=== PATIENT | female | born 1940 | race Caucasian/White ===

== ENCOUNTER 2021-02-28 17:00 | Observation (INO) | payer BC, SELFPAY ==
[2021-02-28] VITALS (15 sets, daily range): BP systolic 158–189; BP diastolic 65–85; PULSE 62–71; RESP 15–24; TEMP 36.2; O2SAT 95–99; BMI 21.8
--- NOTE | 2021-02-28 17:00 | DI.CT.S_ITS ---
PROCEDURE: CT ANGIO HEAD AND NECK INDICATIONS: weakness, left arm, syncope TECHNIQUE: Noncontrast images were performed earlier in the day and not repeated. After the administration of intravenous contrast, 1 mm thick sections acquired from the aortic arch through the [place] of Gupta. Post-contrast 4.5 mm thick sections then re-acquired from the foramen magnum to the vertex. 3-dimensional qogchqu-rwdfxnuws-hkupmfndxc (MIP) and/or volume rendering reformats were acquired of the central intracranial vasculature and neck separately. COMPARISON: [facility], CT, CT STROKE, 02/28/2021, 17:04. FINDINGS: Image quality: Excellent. BRAIN: CSF spaces: Ventricles are normal in size and shape. Basal cisterns are patent. No extra-axial fluid collections. Brain: No midline shift. No intracranial bleeds or masses. Zaavla-white matter interface appears intact. Skull and face: Calvarium and facial bones appear intact, without suspicious lesions. Orbits appear normal. Sinuses: Sinuses and mastoids are clear. HEAD CT ANGIOGRAPHY: Anterior circulation: Intracranial internal carotid arteries are normal in size and flow. There is a diminutive left A1 segment, with a corresponding robust right A1 segment. This is considered to be a normal developmental variant of the [place] of [place], of typically no clinical consequence. The flow within the paired anterior cerebral arteries is otherwise normal and symmetric. The flow within the middle cerebral arteries is normal and symmetric. The anterior communicating artery is seen. No aneurysms are seen. Posterior circulation: Note is made of bilateral type origins of the posterior cerebral arteries, with an associated diminutive basilar artery. The flow within the posterior cerebral arteries is normal and symmetric. The distal vertebral arteries are overall small in size, yet otherwise unremarkable. No aneurysms are seen. NECK CT ANGIOGRAPHY: Carotid system: The great vessels demonstrate a conventional anatomy as they arise from the aortic arch. The origins of the common carotid arteries appear patent. The common carotid arteries demonstrate normal caliber and courses. The bifurcation regions are both widely patent. The internal carotid arteries demonstrate normal calibers and courses. Posterior circulation: The origins of the vertebral arteries both appear widely patent. The more superior extracranial portions of both vertebral arteries also demonstrate normal courses and calibers. They join to form a normal appearing basilar artery. Soft tissues: Visualized neck soft tissues demonstrate no suspicious abnormalities. Bones: No suspicious bony lesions. Visualized cervical spine appears normally aligned. At least moderate cervical spine degenerative changes can be seen, with at least moderate disc space narrowing seen at C4-C5, C5-C6, and C6-C7.. IMPRESSION: No significant intracranial arterial abnormality is seen. Within the arteries of the neck, no hemodynamically significant stenosis can be seen. Incidental note is made of: Cervical spine degenerative changes Ooacri-pa-Ebgirb developmental anomalies Any quantitative measurements of stenosis were performed using NASCET criteria. Dictated by: Charles Braga M.D. on 02/28/2021 at 16:24 Approved by: Charles Braga M.D. on 02/28/2021 at 16:27
--- NOTE | 2021-02-28 17:00 | DI.CT.S_ITS ---
PROCEDURE: CT STROKE INDICATIONS: syncope, left arm weak, improving TECHNIQUE: Noncontrast 4.5 mm thick angled axial sections acquired from the foramen magnum to the vertex, with coronal reformats. For radiation dose reduction, the following was used: automated exposure control, adjustment of mA and/or kV according to patient size. COMPARISON: None. FINDINGS: Image quality: Excellent. CSF spaces: Basal cisterns are patent. No extra-axial fluid collections. There is moderate cerebral volume loss, with resultant ventricular and sulcal prominence as well as prominence of the anterior extra-axial spaces. Brain: No intracranial hemorrhage, mass, or mass effect. There are subcortical, periventricular and deep white matter hypodensities consistent with mild chronic small vessel ischemic changes. The jackson-white matter junction appears preserved. There is intracranial internal carotid artery atherosclerosis. Skull and face: Calvarium and visualized facial bones appear intact, without suspicious lesions. Sinuses: Visualized sinuses and mastoids are clear. IMPRESSION: 1. No acute intracranial abnormality. No imaging contraindications to tPA identified. 2. Moderate cerebral volume loss and mild chronic white matter small vessel ischemic changes. Findings discussed with Dr. Ferro on 02/28/2021 at 5:21 p.m.. This study fulfills neurological imaging criteria for inclusion or exclusion of acute stroke therapies based on available published neurological guidelines. Dictated by: August Baxter M.D. on 02/28/2021 at 17:20 Approved by: August Baxter M.D. on 02/28/2021 at 17:24 PATIENT NAME: GAYATRI MARTÍNEZ : 1940 EXAM DATE: 02/28/2021 17:04 ORD. : MARGI FERRO DO CC: MODALITY: CT PATIENT TYPE: Pre CONTRAST MEDIA: STATION ID: [id number] FLUORO TIME: Diagnostic Imaging [address] [place] [address] PHONE: [phone] PATIENT NAME: GAYATRI MARTÍNEZ : 1940 EXAM DATE: 02/28/2021 17:04 ORD. : MARGI FERRO DO CC: MODALITY: CT PATIENT TYPE: Pre CONTRAST MEDIA: STATION ID: [id number] FLUORO TIME:
--- NOTE | 2021-02-28 17:09 | ED_ITS ---
HPI - Psych General Chief Complaint: Neuro Symptoms/Deficit Stated Complaint: stroke Time Seen by Provider: 02/28/21 17:02 Source: patient Mode of arrival: Ambulatory Limitations: no limitations History of Present Illness HPI Narrative: This is an 81-year-old female who comes to the emergency department with complaint of stroke-like symptoms. Patient is currently living in an RV while traveling with friends for the last several weeks. She had a witnessed episode where she began having drooling and difficulty with speech, patient passed out or had a loss of consciousness and shortly weekend. At that point she had inability to use her left upper extremity which was also appreciated by EMS. Upon transfer here via EMS her symptoms resolved completely and she feels back to her normal self. Patient notes she did feel dizzy prior to the episode generally unwell she denies any headache at this time she has no difficulty with speech, no weakness, no numbness or tingling. She denies any chest pain or shortness of breath. She denies any nausea or vomiting. No recent major GI issues. She denies swelling in her extremities. She takes atorvastatin, levothyroxine, metoprolol and recently had her medications adjusted with valsartan hydrochlorothiazide. Patient states she has known hypertension and they have had difficulty controlling it recently. She is not on any anticoagulants including aspirin. She has not had prior cardiac issues, stents or strokes or TIAs. She states she does not tolerate narcotics well. No tobacco, occasional alcohol, no illicit. She states she had a small glass of wi ne earlier today. Related Data Home Medications Medication Instructions Recorded Confirmed atorvastatin 20 mg tablet 20 mg PO QPM 02/28/21 02/28/21 levothyroxine 88 mcg tablet 88 mcg PO DAILY 02/28/21 02/28/21 metoprolol succinate 50 mg 50 mg PO DAILY 02/28/21 02/28/21 tablet,extended release 24 hr valsartan 160 1 tab PO DAILY 02/28/21 02/28/21 mg-hydrochlorothiazide 12.5 mg tablet Allergies Allergy/AdvReac Type Severity Reaction Status Date / Time narcotic AdvReac Vomiting Uncoded 02/28/21 17:49 Review of Systems Review of Systems ROS Unobtainable: All systems reviewed & are unremarkable except as noted in HPI and below Patient History Social History Smoking Status: Never smoker Exam Narrative Exam Narrative: GEN: well nourished, well appearing female, alert and oriented x 3, patient appears to be in mild distress. HEENT: Atraumatic, pupils are equal round reactive to light, extraocular movements are intact, nares are clear, TMs are clear with no fluid, there is no conjunctival pallor. Throat is clear without any exudates, erythema, tonsillar enlargement or uvular deviation, no facial droop. HEART: Regular rate and rhythm without murmur, clicks, rubs. Pulses are equal in upper and lower extremities LUNGS:Lungs clear to auscultation, no wheezes, rales, crackles, chest moves symmetrically ABD:bowel sounds normal, soft, non-tender, no guarding, rebound, rigidity, no masses noted, no hepatosplenomegaly :No CVA tenderness MSCL: Non-tender, no muscle atrophy, muscles strength 5/5 upper and lower e xtremities, full range of motion NEURO:CN 2-12 intact, sensation normal, reflexes 2/4 upper and lower extremities. finger nose finger test normal, heel reynolds test normal, romberg normal SKIN: No rash, erythema or other skin changes noted. Initial Vital Signs Initial Vital Signs: Vital Signs Pulse Rate 70 02/28/21 17:00 Respiratory Rate 20 02/28/21 17:00 Blood Pressure 179/78 H 02/28/21 17:00 Pulse Oximetry 97 02/28/21 17:00 Scores NIH Stroke Scale Level of Conciousness: Alert, keenly responsive Ask month/age: Answers both questions correctly. Open/close eyes, close hand: Performs both tasks correctly Best gaze horizontal: Normal Visual londono: No visual loss Facial palsy: Normal symetrical movement Left arm drift: No drift for full 10 sec Right arm drift: No drift for full 10 sec Left leg drift: No drift for full 5 sec Right leg drift: No drift for full 5 sec Limb ataxia: Absent Sensory on face/arms/legs: Normal, no sensory loss Best language: No aphasia, normal Dysarthria: Normal Extinction or inattention: No abnormality Total NIH Stroke scale score: 0 Course Orders Ordered: ED Orders 02/28/21 17:[address] angio head and neck Stat Urine Drug Screen, Rapid Stat EKG-12 Lead Stat 02/28/21 17:18 Basic Metabolic Panel Stat Complete Blood Count AUTO DIFF Stat Partial Thromboplastin Time Stat Prothrombin Time INR Stat Troponin & CK Cardiac Panel Stat 02/28/21 17:26 COVID19 - ADMIT (ASSOCIATE CIVIL ENGINEER swab/PCR) Stat 02/28/21 17:29 COVID19 - ADMIT (ASSOCIATE CIVIL ENGINEER swab/PCR) Stat Sodium Chloride (Normal Saline 0.9%) 1,000 mls @ 150 mls/hr IV CONT MARLA Last Admin: 02/28/21 17:47 Dose: 150 mls/hr Documented by: NETTA Discontinued Medications Aspirin (Aspirin 81 Mg Chew Tab) 324 mg PO NOW ONE Stop: 02/28/21 17:31 Last Admin: 02/28/21 17:47 Dose: 324 mg Documented by: NETTA Consultations Consultation #1: Dr. Ashley, accepts for observation. Vital Signs Vital signs: Vital Signs - 8 hr 02/28/21 17:00 02/28/21 17:15 02/28/21 17:17 Pulse Rate 70 69 67 Respiratory Rate 20 15 16 Blood Pressure 179/78 H 179/78 H Pulse Oximetry 97 98 02/28/21 17:30 02/28/21 17:46 02/28/21 18:00 Pulse Rate 71 68 63 Respiratory Rate 24 18 20 Blood Pressure 188/74 H 179/74 H Pulse Oximetry 97 97 02/28/21 18:30 02/28/21 19:00 Pulse Rate 64 64 Respiratory Rate 20 20 Blood Pressure Pulse Oximetry 98 97 MDM - Psych Lab Data Result diagrams: 02/28/21 17:18 02/28/21 17:18 Labs: Lab Results 02/28/21 02/28/21 02/28/21 Range/Units 17:18 17:18 17:18 WBC 11.4 H (4.5-11.0) X10^3/uL RBC 4.08 (4.0-5.2) X10^6/uL Hgb 13.2 (12.0-16.0) g/dL Hct 38.8 (36-46) % MCV 95.2 (80-100) fL MCH 32.3 (26-34) PG MCHC 34.0 (30-36) % RDW 12.5 (11.6-14.8) % Plt Count 310 (150-400) X10^3/uL Neut % (Auto) 56.0 (50-75) % Lymph % (Auto) 31.9 (25-40) % [place] % (Auto) 9.7 (3-14) % Eos % (Auto) 1.3 L (2-4) % Baso % (Auto) 1.1 (0-2) % Neut # (Auto) 6400 (7339-1556) /uL Lymph # (Auto) 3600 (5133-8703) /uL [place] # (Auto) 1100 H (0-900) /uL Eos # (Auto) 200 (0-450) /uL Baso # (Auto) 100 (0-100) /uL PT 11.0 (10.1-12.7) SECONDS INR 1.0 (0.9-1.3) APTT 27 (26.4-36.2) SECONDS Sodium (137-145) mmol/L Potassium (3.4-5.1) mmol/L Chloride (98-107) mmol/L Carbon Dioxide (22-32) mmol/L BUN (7-17) mg/dL Creatinine (0.52-1.04) mg/dL Estimated GFR (>60) mL/min BUN/Creatinine Ratio (6-22) Glucose (80-110) mg/dL Calcium (8.4-10.2) mg/dL Total Creatine Kinase 58 (30-135) U/L CK-MB (CK-2) TNP CK-MB (CK-2) Rel Index TNP Troponin I < 0.012 (0.01-0.034) ng/mL SARS-CoV-2 (PCR) (Negative) 02/28/21 02/28/21 Range/Units 17:18 17:26 WBC (4.5-11.0) X10^3/uL RBC (4.0-5.2) X10^6/uL Hgb (12.0-16.0) g/dL Hct (36-46) % MCV (80-100) fL MCH (26-34) PG MCHC (30-36) % RDW (11.6-14.8) % Plt Count (150-400) X10^3/uL Neut % (Auto) (50-75) % Lymph % (Auto) (25-40) % [place] % (Auto) (3-14) % Eos % (Auto) (2-4) % Baso % (Auto) (0-2) % Neut # (Auto) (7955-2061) /uL Lymph # (Auto) (9239-3507) /uL [place] # (Auto) (0-900) /uL Eos # (Auto) (0-450) /uL Baso # (Auto) (0-100) /uL PT (10.1-12.7) SECONDS INR (0.9-1.3) APTT (26.4-36.2) SECONDS Sodium 132 L (137-145) mmol/L Potassium 3.1 L (3.4-5.1) mmol/L Chloride 98 (98-107) mmol/L Carbon Dioxide 25 (22-32) mmol/L BUN 8 (7-17) mg/dL Creatinine 0.78 (0.52-1.04) mg/dL Estimated GFR > 60.0 (>60) mL/min BUN/Creatinine Ratio 10.3 (6-22) Glucose 117 H (80-110) mg/dL Calcium 8.9 (8.4-10.2) mg/dL Total Creatine Kinase (30-135) U/L CK-MB (CK-2) CK-MB (CK-2) Rel Index Troponin I (0.01-0.034) ng/mL SARS-CoV-2 (PCR) Negative (Negative) Point of Care Testing Glucose POC 120 Urine Dip Bedside Urine Glucose Negative Bedside Urine Bilirubin - Negative Bedside Urine Ketone - Negative Urine Specific Brea 1.010 Bedside Urine Occult Blood ++ Bedside Urine pH 7.0 Bedside Urine Protein - Negative Bedside Urine Urobilinogen - Negative Bedside Urine Nitrite - Negative Bedside Urine Leukocytes - Negative Esterase Imaging Data CT scan - head: Radiologist's Impression: Gayatri Palm??81??F??1940 ? Allergy/Adv: [narcotic] Close Head/Neck CTA (Signed) Charles Braga - 02/28/[address] (Signed) August Baxter - 02/28/21 Launch?[address] [address] [address] Scan Report Signed Patient: Gayatri Palm MR#: [id number] : 1940 Acct:[id number] Age/Sex: 81 / F Date of Service: 02/28/21 Loc: ED Accession Number: [id number] ?? Procedure: CT Stroke Ordering Provider: Michelle Ferro D.O. PROCEDURE:? CT STROKE ? INDICATIONS:? syncope, left arm weak, improving ? TECHNIQUE:? Noncontrast 4.5 mm thick angled axial sections acquired from the foramen magnum to the vertex, with coronal reformats.? For radiation dose reduction, the following was used:? automated exposure control, adjustment of mA and/or kV according to patient size.? ? COMPARISON:? None. ? FINDINGS:? Image quality:? Excellent.? ? CSF spaces:? Basal cisterns are patent.? No extra-axial fluid collections.? There is moderate cerebral volume loss, with resultant ventricular and sulcal prominence as well as prominence of the anterior extra-axial spaces.? ? Brain:? No intracranial hemorrhage, mass, or mass effect.? There are subcortical, periventricular and deep white matter hypodensities consistent with mild chronic small vessel ischemic changes.? The zavala-white matter junction appears preserved.? There is intracranial internal carotid artery atherosclerosis.? ? Skull and face:? Calvarium and visualized facial bones appear intact, without suspicious lesions.? ? Sinuses:? Visualized sinuses and mastoids are clear.? ? IMPRESSION:? ? 1. No acute intracranial abnormality.? No imaging contraindications to tPA identified. ? 2. Moderate cerebral volume loss and mild chronic white matter small vessel ischemic changes. ? Findings discussed with Dr. Ferro on 02/28/2021 at 5:21 p.m.. ? This study fulfills neurological imaging criteria for inclusion or exclusion of acute stroke therapies based on available published neurological guidelines.? ? ? Dictated by: August Baxter M.D. on 02/28/2021 at 17:20 ? ? Approved by: August Baxter M.D. on 02/28/2021 at 17:24 ? PATIENT NAME:? GAYATRI PALM :? 1940 MRN:? [id number] ACCOUNT #: ? [id number] ACCESSION#:? [id number] EXAM DATE: 02/28/2021 ? 17:04 ORD. :Irene FERRO DO CC: ? ? MODALITY: CT PATIENT TYPE: Pre CONTRAST MEDIA:?? STATION ID: [id number] FLUORO TIME:? Diagnostic Imaging [address] [place] [address] PHONE: [phone]? ? PATIENT NAME:? GAYATRI PALM :? 1940 MRN:? [id number] ACCOUNT #: ? [id number] ACCESSION#:? [id number] EXAM DATE: 02/28/2021 ? 17:[address].:? MICHELLE FERRO DO CC: ? ? MODALITY: CT PATIENT TYPE: Pre CONTRAST MEDIA:?? STATION ID: [id number] FLUORO TIME CTA - brain/neck: Radiologist's Impression: Gayatri Palm??81??F??1940 ? Allergy/Adv: [narcotic] Close Head/Neck CTA (Signed) Jorge Bragasse - 02/28/[address] (Signed) August Baxter - 02/28/21 Launch?[place] [address] CT Scan Report Signed Patient: Gayatri Palm MR#: [id number] : 1940 Acct:[id number] Age/Sex: 81 / F Date of Service: 02/28/21 Loc: ED Accession Number: [id number] ?? Procedure: CT angio head and neck Ordering Provider: Michelle Ferro D.O. PROCEDURE:? CT ANGIO HEAD AND NECK ? INDICATIONS:? weakness, left arm, syncope ? TECHNIQUE:? Noncontrast images were performed earlier in the day and not repeated.? ? After the administration of intravenous contrast, 1 mm thick sections acquired from the aortic arch through the [place] of Gupta.? Post-contrast 4.5 mm thick sections then re-acquired from the foramen magnum to the vertex.? 3-dimensional cafdzsy-fioigywsz-gkhtbrupiy (MIP) and/or volume rendering reformats were acquired of the central intracranial vasculature and neck separately. ? COMPARISON:? [facility], CT, CT STROKE, 02/28/2021, 17:04. ? FINDINGS:? Image quality:? Excellent.? ? BRAIN:? CSF spaces:? Ventricles are normal in size and shape.? Basal cisterns are patent.? No extra-axial fluid collections.? ? Brain:? No midline shift.? No intracranial bleeds or masses.? Zavala-white matter interface appears intact.? ? Skull and face:? Calvarium and facial bones appear intact, without suspicious lesions.? Orbits appear normal.? ? Sinuses:? Sinuses and mastoids are clear.? ? HEAD CT ANGIOGRAPHY:? Anterior circulation:? Intracranial internal carotid arteries are normal in size and flow. There is a diminutive left A1 segment, with a corresponding robust right A1 segment.? This is considered to be a normal developmental variant of the [place] of [place], of typically no clinical consequence. ? The flow within the paired anterior cerebral arteries is otherwise normal and symmetric.? The flow within the middle cerebral arteries is normal and symmetric.? The anterior communicating artery is seen.? No aneurysms are seen.? ? Posterior circulation:? Note is made of bilateral type origins of the posterior cerebral arteries, with an associated diminutive basilar artery.? The flow within the posterior cerebral arteries is normal and symmetric.? The distal vertebral arteries are overall small in size, yet otherwise unremarkable.? No aneurysms are seen.? ? NECK CT ANGIOGRAPHY:? Carotid system:? The great vessels demonstrate a conventional anatomy as they arise from the aortic arch.? The origins of the common carotid arteries appear patent.? The common carotid arteries demonstrate normal caliber and courses.? The bifurcation regions are both widely patent.? The internal carotid arteries demonstrate normal calibers and courses.? ? Posterior circulation:? The origins of the vertebral arteries both appear widely patent.? The more superior extracranial portions of both vertebral arteries also demonstrate normal courses and calibers.? They join to form a normal appearing basilar artery.? ? Soft tissues:? Visualized neck soft tissues demonstrate no suspicious abnormalities.? ? Bones:? No suspicious bony lesions.? Visualized cervical spine appears normally aligned.? At least moderate cervical spine degenerative changes can be seen, with at least moderate disc space narrowing seen at C4-C5, C5-C6, and C6-C7.. ? ? ? IMPRESSION:? No significant intracranial arterial abnormality is seen.? ? Within the arteries of the neck, no hemodynamically significant stenosis can be seen. ? Incidental note is made of: Cervical spine degenerative changes Jyioif-ti-Mfjvhw developmental anomalies ? Any quantitative measurements of stenosis were performed using NASCET criteria.? ? ? Dictated by: Charles Braga M.D. on 02/28/2021 at 16:24 ? ? Approved by: Charles Braga M.D. on 02/28/2021 at 16:27?? ECG Data Attestation: I personally reviewed and interpreted this ECG as follows: Prior ECG tracings: not available for review Interpretation: Sinus rhythm rate of 64 NV 194 QRS of 90 QTC 497. Patient has some ST depression 2 3 AVF laterally. She has RSR in V1 V2. MDM Narrative Medical decision making narrative: This is an 81-year-old female comes to the emergency department with symptoms consistent with stroke symptoms resolved on her way to the hospital and in the emergency department her NIH is 0. Patient is not anticoagulated. She does states she has had some difficulty with blood pressure and had her medications adjusted recently. She does not live locally. Initial head CT, CT angio do not show major changes. Her labs show a mild hyponatremia hypokalemia. Patient is accepted by the hospitalist, Dr. Ashley. Discharge Plan Departure Patient Disposition: Admitted as Observation Clinical Impression: Transient cerebral ischemia
[2021-02-28 17:28] LABS: Add Manual Diff / Slide Review NO; Basophils Absolute Auto 100 /uL (0-100); Basophils Percent Auto 1.1 % (0-2); Eosinophils Absolute Auto 200 /uL (0-450); Eosinophils Percent Auto 1.3 % (2-4); Hematocrit 38.8 % (36-46); Hemoglobin 13.2 g/dL (12.0-16.0); Lymphocytes Absolute Auto 3600 /uL (1100-4500); Lymphocytes Percent Auto 31.9 % (25-40); Mean Corpuscular Hemoglobin 32.3 PG (26-34); Mean Corpuscular Volume 95.2 fL (80-100); Monocytes Absolute Auto 1100 /uL (0-900); Monocytes Percent Auto 9.7 % (3-14); Neutrophils Absolute Auto 6400 /uL (1500-7000); Platelet Count 310 X10^3/uL (150-400); Red Blood Cell Count 4.08 X10^6/uL (4.0-5.2); Red Cell Distribution Width 12.5 % (11.6-14.8); White Blood Cell Count 11.4 X10^3/uL (4.5-11.0)
[2021-02-28 17:37] LABS: PTT Partial Thromboplastin Tim 27 SECONDS (26.4-36.2)
[2021-02-28 17:42] LABS: Creatine Kinase 58 U/L (30-135)
[2021-02-28 17:43] LABS: BUN Creatinine Ratio 10.3 (6-22); Blood Urea Nitrogen 8 mg/dL (7-17); Calcium 8.9 mg/dL (8.4-10.2); Carbon Dioxide 25 mmol/L (22-32); Chloride 98 mmol/L (98-107); Estimated Glomerular Filt Rate > 60.0 mL/min (>60); Glucose 117 mg/dL (80-110); HEMOLYSIS < 15 (0-50); Potassium 3.1 mmol/L (3.4-5.1); Sodium 132 mmol/L (137-145)
--- NOTE | 2021-02-28 17:46 | RT ---
Responded to code stroke. Pt airway patent and no distress noted. Pt on room air, rn and MD at bedside
[2021-02-28] MEDS: SODIUM CHLORIDE 0.9% 1,000 ML 150 ML IV (17:47)
[2021-02-28] MEDS: ASPIRIN 81 MG CHEW TAB 324 MG PO (17:47)
[2021-02-28 17:55] LABS: Troponin I < 0.012 ng/mL (0.01-0.034)
[2021-02-28 19:11] LABS: COVID19 - ADMIT (NP swab/PCR) Negative (Negative)
--- NOTE | 2021-02-28 20:45 | PC.NURSE ---
2044: report from Genna, ED RN. 81 year old Srikanth admission for TIA, observation. u/a was sent. b/p's high in ED, 189/70's. has not had her HS cardiac medications. 2049: arrived to floor via w/c. assisted out of w/c and ambulated to/from bathroom w/ steady gait. denies dizziness, no pain. no SOB/dyspnea. skin is intact, hat collected urine, yellow clear. call to Dr. Ashley to notify arrival to floor. b/p improved: 161/70, pulse 72. tolerating RA. high 90s. oriented to room, bed controls, call light.
--- NOTE | 2021-02-28 21:44 | DI.MRI.S_ITS ---
PROCEDURE: MR HEAD/BRAIN WO CON INDICATIONS: r/o stroke TECHNIQUE: Non-contrast axial T1 spin echo, axial T2 fast spin echo, sagittal and axial FLAIR, coronal T2 fast spin echo, axial gradient echo, axial diffusion and ADC through the brain. COMPARISON: [facility], CT, CT ANGIO HEAD AND NECK, 02/28/2021, 17:04. [facility], CT, CT STROKE, 02/28/2021, 17:04. FINDINGS: Image quality: Excellent. CSF spaces: Ventricles appear symmetric in size and shape. Basal cisterns are patent. No extra-axial fluid collections. Brain: No intracranial bleeds or mass effects. There is cerebral volume loss for age. There are periventricular and deep white matter chronic small vessel ischemic changes. Brainstem appears normal. Diffusion-weighted images show no acute ischemic insults. No chronic ischemic insults. Normal intravascular flow voids are present. Skull and face: Calvarial bone marrow is normal in signal. Orbits are normal. Sinuses: Sinuses and mastoids are clear. IMPRESSION: 1. Age-related volume loss and small vessel ischemic change. 2. No evidence of acute stroke, hemorrhage, or mass. Dictated by: Zan Witt M.D. on 03/01/2021 at 8:44 Approved by: Zan Witt M.D. on 03/01/2021 at 8:48
--- NOTE | 2021-02-28 21:44 | DI.ECHO.S_ITS ---
[facility] +---------+ : : [address] : : : : [id number] : : : : Phone: [phone] Echocardiogram Report + + :Name: GAYATRI MARTÍNEZ Study Date: 03/01/2021 Height: 64 in : :[facility] ReadingLocation: Weight: 127 lb : : Gender: Female BSA: 1.6 m2 : :: 1940 Age: 81 yrs BP: 158/85 mmHg: :Reason For Study: R/O/ PFO : :Ordering Physician: MACK, : :AI Performed By: Kandice Mclain : :Referring: AI GIRON : + + Interpretation Summary The ejection fraction is estimated to be 60-65%. Unable to grade diastolic function. The right ventricle is normal in size and function. There is mild mitral regurgitation. There is mild tricuspid regurgitation. Mildly elevated PASP. No evidence of intra-atrial shunt by agitated saline contrast. Procedure: A two-dimensional transthoracic echocardiogram with color flow and Doppler was performed. The study quality was technically adequate. There is no prior echocardiogram noted for this patient. A saline contrast injection was performed to assess for cardiac shunting. The injection was performed through an intravenous line in the left arm. The patient was in sinus bradycardia with heart rates between 56-65 bpm during the exam. Left Ventricle: The left ventricle is normal in size and wall thickness. The ejection fraction is estimated to be 60-65%. Diastolic function could not be accurately assessed due to contradictory data. Right Ventricle: The right ventricle is normal in size and function. Atria: Both atria are normal in size. There is no Doppler evidence for an interatrial shunt. Injection of contrast documented no interatrial shunt. Bubble study was captured on image frame(s) # [id number]. Mitral Valve: There is mild mitral annular calcification. The mitral valve leaflets appear mildly thickened, but open well. The mitral valve chordae are thickened and/or calcified. There is mild mitral regurgitation. Aortic Valve: The aortic valve is slightly calcified. The aortic valve is trileaflet. The aortic valve opens well. There is no aortic valve stenosis. No aortic regurgitation is present. Tricuspid Valve: The tricuspid valve leaflets are thin and pliable. There is mild tricuspid regurgitation. PASP approximately 35-40 mmHg. Pulmonic Valve: The pulmonic valve is not well visualized. There is trace pulmonic regurgitation. Great Vessels: The aortic root is normal size. The dimensions of the ascending aorta are normal. Mild atherosclerotic plaque(s) in the ascending aorta. The IVC is of normal diameter and collapses greater than 50% with a sniff. This suggests a low right atrial pressure of 3 mm Hg. Pericardium/ Pleura There is no pericardial effusion. There is no pleural effusion. MMode/2D Measurements & Calculations LVIDd: 4.3 cm LVOT diam: 2.0 cm LVIDs: 3.0 cm Ao root diam: 2.9 cm FS: 30.1 % asc Aorta Diam: 3.1 cm IVSd: 0.64 cm Ao Arch Diam (Prox Trans): 2.3 cm LVPWd: 0.63 cm LV durham. diameter/BSA (cm/m^2): 2.7 LV sys. diameter/BSA (cm/m^2): 1.9 LA A2 area: 17.4 cm2 RA long axis: 4.9 cm LA A4 area: 16.5 cm2 RA area: 18.2 cm2 LA length (vol): 4.6 cm RA vol: 58.1 ml LA vol: 52.4 ml RA : 36.0 ml/m2 LA vol index: 32.5 ml/m2 IVC diam: 1.4 cm RVD1 (basal): 2.9 cm TAPSE: 2.8 cm Doppler Measurements & Calculations Ao V2 max: 107.1 cm/sec LVOT Max Thony: 103.0 cm/sec Ao V2 mean: 67.4 cm/sec LV V1 max P.2 mmHg Ao max P.6 mmHg LV V1 VTI: 25.5 cm Ao mean P.2 mmHg ROBERTO(I,D): 2.8 cm2 Ao V2 VTI: 28.1 cm ROBERTO(V,D): 3.0 cm2 sev ratio: 0.91 ROBERTO indexed to BSA (cm^2/m^2): 1.7 MV E max thony: 77.3 cm/sec TR max thony: 281.4 cm/sec MV A max thony: 86.7 cm/sec TR max P.7 mmHg MV E/A: 0.89 PA V2 max: 70.9 cm/sec Med Peak E' Thony: 7.6 cm/sec PA V2 mean: 50.9 cm/sec E/E' med: 10.2 PA mean P.2 mmHg Lat Peak E' Thony: 7.4 cm/sec PA pr(Accel): 20.8 mmHg E/E' lat: 10.4 E/e' average: 10.3 MV dec time: 0.22 sec SV(OT): 78.6 ml Reading Physician:12:51 PM
--- NOTE | 2021-02-28 21:48 | PM.HP.1 ---
History of Present Illness History of Present Illness Date Patient Seen: 02/28/21 Time Patient Seen: 21:48 Chief complaint: stroke Narrative: The patient is an 81-year-old female with a history of hypertension, hyperlipidemia, hypothyroidism who is traveling from [facility] in an RV with a group of friends. The patient was sitting at the table this evening when she felt ?funny and not right?. Patient states she ?passed out. She states that when the medics arrived she was unable to lift her left arm. She felt she was unable to speak. Her friends noted some drooling out of the left side of her face. The patient states that by the time she was in the truck with the medics she was able to move her left arm. She had no numbness or tingling. No headache. No blurred vision or double vision. Patient had complete control of her arms and legs. She had no incontinence. No headache. Her speech was clear. The patient was evaluated in the emergency department. She was found to have an NIH stroke scale score of 0. Head CT was obtained which was negative for any acute bleed or evidence of an acute stroke. She had a CT of her neck which showed no intracranial and carotid abnormalities. She was found to have cervical spine abnormalities which is chronic. The patient had a 12 lead EKG which showed some lateral ST T wave changes but no acute ST-T changes. Her initial troponin was less than 0.012. Patient is back to her baseline. She is admitted to the hospital for evaluation of a possible TIA. In the emergency room the patient was noted to be markedly hypertensive. Her blood pressure was 179/78. Blood pressure has since improved to 150 8/85 systolic. Patient History Medical History (Updated 02/28/21 @ 22:01 by Camille Ashley MD) Allergic rhinitis Hyperlipidemia Hypertension Hypothyroidism Family & Social History Family History (Updated 02/28/21 @ 22:01 by Camille Ashley MD) Mother Hypertension Safety & Behavioral: Been Physically Hurt or No Threatened By a Person Tobacco & Substance use: Smoking Status Never smoker Substance Use Type does not use Meds Home Medications and Allergies Home Medications Medication Instructions Recorded Confirmed Type atorvastatin 20 mg tablet 20 mg PO QPM 02/28/21 02/28/21 History levothyroxine 88 mcg tablet 88 mcg PO DAILY 02/28/21 02/28/21 History metoprolol succinate 50 mg 50 mg PO DAILY 02/28/21 02/28/21 History tablet,extended release 24 hr valsartan 160 1 tab PO DAILY 02/28/21 02/28/21 History mg-hydrochlorothiazide 12.5 mg tablet Allergies Allergy/AdvReac Type Severity Reaction Status Date / Time narcotic AdvReac Vomiting Uncoded 02/28/21 17:49 Review of Systems Review of Systems Narrative: 10 point review of systems is negative Exam Vital Signs (past 8 hours): - 02/28/21 17:00 02/28/21 17:15 02/28/21 17:17 Temperature Pulse Rate 70 69 67 Respiratory Rate 20 15 16 Blood Pressure 179/78 H 179/78 H Pulse Oximetry 97 98 02/28/21 17:30 02/28/21 17:46 02/28/21 18:00 Temperature Pulse Rate 71 68 63 Respiratory Rate 24 18 20 Blood Pressure 188/74 H 179/74 H Pulse Oximetry 97 97 02/28/21 18:30 02/28/21 19:00 02/28/21 19:27 Temperature Pulse Rate 64 64 63 Respiratory Rate 20 20 18 Blood Pressure 172/71 H Pulse Oximetry 98 97 97 02/28/21 19:30 02/28/21 19:32 02/28/21 20:00 Temperature Pulse Rate 62 64 62 Respiratory Rate 21 18 17 Blood Pressure 160/76 H 174/75 H Pulse Oximetry 97 98 97 02/28/21 20:30 02/28/21 20:50 Temperature 97.2 F L Pulse Rate 65 69 Respiratory Rate 19 18 Blood Pressure 189/79 H 158/85 H Pulse Oximetry 97 99 Oxygen Delivery Method Room Air Narrative Exam Narrative: Pleasant elderly female lying in bed in no obvious distress [facility] Other: HEENT: Normocephalic atraumatic, extraocular muscles are intact, oropharynx reveals moist mucous membranes, neck is supple, there is no adenopathy, no thyromegaly Eyes Other: Visual londono are intact to confrontation, extraocular muscles are intact, Neck Other: Neck is supple, no adenopathy, no thyromegaly, no carotid bruit Resp Other: Lungs: Clear to auscultation Cardio Other: Cardiac exam: Regular rate and rhythm normal S1-S2 GI Other: Abdomen: Soft nontender nondistended, no hepatosplenomegaly Neuro Other: NIH stroke scale score of 0 sensations grossly intact. there is no ataxia upper lower extremities, strength is symmetric and equal, gait is not assessed Extrem Other: Extremities: No edema Psych Other: Patient is awake alert and appropriate, no hallucinations, no delusions Objective ECG Impression: Normal sinus rhythm, ST T wave abnormalities in leads 4 5 and 6, no acute ST-T abnormalities noted Labs Result Diagrams: 02/28/21 17:18 02/28/21 17:18 Labs: Laboratory Results - last 24 hr 02/28/21 02/28/21 02/28/21 17:18 17:18 17:18 WBC 11.4 H RBC 4.08 Hgb 13.2 Hct 38.8 MCV 95.2 MCH 32.3 MCHC 34.0 RDW 12.5 Plt Count 310 Neut % (Auto) 56.0 Lymph % (Auto) 31.9 [place] % (Auto) 9.7 Eos % (Auto) 1.3 L Baso % (Auto) 1.1 Neut # (Auto) 6400 Lymph # (Auto) 3600 [place] # (Auto) 1100 H Eos # (Auto) 200 Baso # (Auto) 100 PT 11.0 INR 1.0 APTT 27 Sodium Potassium Chloride Carbon Dioxide BUN Creatinine Estimated GFR BUN/Creatinine Ratio Glucose Calcium Total Creatine Kinase 58 CK-MB (CK-2) TNP CK-MB (CK-2) Rel Index TNP Troponin I < 0.012 SARS-CoV-2 (PCR) 02/28/21 02/28/21 17:18 17:26 WBC RBC Hgb Hct MCV MCH MCHC RDW Plt Count Neut % (Auto) Lymph % (Auto) [place] % (Auto) Eos % (Auto) Baso % (Auto) Neut # (Auto) Lymph # (Auto) [place] # (Auto) Eos # (Auto) Baso # (Auto) PT INR APTT Sodium 132 L Potassium 3.1 L Chloride 98 Carbon Dioxide 25 BUN 8 Creatinine 0.78 Estimated GFR > 60.0 BUN/Creatinine Ratio 10.3 Glucose 117 H Calcium 8.9 Total Creatine Kinase CK-MB (CK-2) CK-MB (CK-2) Rel Index Troponin I SARS-CoV-2 (PCR) Negative Assessment & Plan Assessment & Plan narrative: 81-year-old female admitted to the hospital with abrupt onset of left arm weakness, possible syncopal episode, and drooling on of the left face, her NIH stroke scale score 0, symptoms have completely resolved -head CT in the emergency room is negative for an acute stroke, no evidence of bleed -CTA of neck and head showed no intracranial abnormalities, patient has chronic cervical spine changes -patient was markedly hypertensive on admission, has a history of poorly controlled hypertension, in addition to a history of hyperlipidemia -patient received an aspirin in the emergency room, she normally does not take aspirin -plan will continue aspirin 81 mg daily, will increase her atorvastatin to 40 mg daily, will obtain a lipid profile -will continue her current blood pressure medication at this time of metoprolol 50 a day and valsartan 160 hydrochlorothiazid -patient will be placed on DVT prophylaxis including Lovenox 40 mg daily -patient is currently on telemetry, will obtain cardiac echo in the morning, an MRI of the brain to rule out an acute stroke -will obtain PT OT consultation prior to discharge, patient has no speech abnormalities no difficulty with swallowing and no drooling. A speech consult non indicated Hypertension -will allow for permissive hypertension this evening -resume metoprolol and valsartan hydrochlorothiazide in the morning Hypothyroidism -continue L-thyroxine Hyperlipidemia -in the setting of a TIA will increase her atorvastatin to 40 mg daily Hypokalemia -likely related to the thiazide diet -will replace with potassium 40 mg per day Patient reports she is DNR, her is her surrogate decision maker, patient will be brought into the hospital under observation, anticipate discharge home tomorrow. Time Spent With Patient Critical Care time: I spent a total of [] minutes of critical care time on this patient's care today; this time is exclusive of procedural time.
[2021-02-28 22:07] LABS: Cholesterol 137 mg/dL (140-199); HDL Cholesterol 68 mg/dL (40-60); LDL Cholesterol Calculated 51 mg/dL (<100); Triglycerides 88 mg/dL (35-150)
[2021-02-28] MEDS: ATORVASTATIN 20 MG TABLET 40 MG PO (22:57)
[2021-02-28] MEDS: POTASSIUM CHLORIDE 20 MEQ TAB 40 MEQ PO (22:57)
[2021-03-01 00:05] VITALS: BP 139/72; PULSE 60; RESP 14; TEMP 36.3; O2SAT 99
[2021-03-01 03:16] VITALS: BP 154/83; PULSE 74; RESP 14; TEMP 36.9; O2SAT 95
[2021-03-01] MEDS: LEVOTHYROXINE 88 MCG TABLET PO (06:06)
[2021-03-01 06:28] LABS: UR Morphine/Opiate cutoff 300 Negative (Negative); Ur Creatinine 50 (Normal); Ur Specific Gravity 1.015 (Normal); Urine Amphetamines Negative (Negative); Urine Barbiturates Negative (Negative); Urine Benzodiazepines Negative (Negative); Urine Cocaine Negative (Negative); Urine MDMA Negative (Negative); Urine Methadone Negative (Negative); Urine Methamphetamines Negative (Negative); Urine Oxycodone Negative (Negative); Urine Phencyclidine Negative (Negative); Urine Tetrahydrocannabinol Negative (Negative); Urine Tricyclic Antidepressant Negative (Negative); Urine pH 6.5 (Normal)
[2021-03-01 06:47] LABS: BUN Creatinine Ratio 12.1 (6-22); Blood Urea Nitrogen 7 mg/dL (7-17); Calcium 8.7 mg/dL (8.4-10.2); Carbon Dioxide 29 mmol/L (22-32); Chloride 101 mmol/L (98-107); Creatine Kinase 74 U/L (30-135); Estimated Glomerular Filt Rate > 60.0 mL/min (>60); Glucose 100 mg/dL (80-110); HEMOLYSIS < 15 (0-50); Potassium 4.3 mmol/L (3.4-5.1); Sodium 132 mmol/L (137-145)
[2021-03-01 06:58] LABS: Troponin I < 0.012 ng/mL (0.01-0.034)
[2021-03-01 07:25] LABS: Appearance Urine UA CLOUDY; Bilirubin Urine UA NEGATIVE (NEGATIVE); Color Urine UA YELLOW; Glucose Urine UA NEGATIVE (Negative); Ketones Urine UA NEGATIVE (NEGATIVE); Leukocyte Esterase Urine UA 2+ (NEGATIVE); Nitrite Urine UA POSITIVE (Negative); Occult Blood Urine UA 2+ (Negative); Protein Urine UA NEGATIVE (Negative); Specific Gravity Urine UA <=1.005 (1.000-1.035); Urobilinogen Urine UA 0.2 E.U./dL (0.2); pH Urine UA 6.5 (4.5-8.0)
[2021-03-01 07:26] LABS: RBC Urine 1-5/HPF (0-5/HPF); Squamous Epithelial Cell Urine 1-5 /HPF (0-5/HPF); WBC Urine 30-100/HPF (0-5/HPF)
[2021-03-01 07:27] LABS: Bacteria Urine Many (>30); Culture Indicated Urine Specimen Cultured
[2021-03-01 07:38] VITALS: BP 145/75; PULSE 74; RESP 18; TEMP 36.8; O2SAT 99
[2021-03-01 09:26] VITALS: BP 145/75
[2021-03-01] MEDS: ASPIRIN EC 81 MG TABLET PO (09:26)
[2021-03-01] MEDS: METOPROLOL ER 50 MG TABLET PO (09:26)
[2021-03-01] MEDS: VALSARTAN 80 MG TABLET 160 MG PO (09:26)
[2021-03-01] MEDS: ENOXAPARIN 40 MG/0.4 ML SYRINGE SUBCUT (09:26)
--- NOTE | 2021-03-01 09:41 | PT.IIE ---
Medical History (Last Updated 02/28/21 @ 22:01 by Camille Ashley MD) Allergic rhinitis Hyperlipidemia Hypertension Hypothyroidism Physical Therapy Inpatient Evaluation/Re-Eval M1 PT/OT-IP Prior Functional Status Start: 03/01/21 09:31 Freq: NEEDED Status: Active Protocol: Document 03/01/21 09:41 AB (Rec: 03/01/21 10:36 AB [id number]) Medical Review Prior Functional Status Medical History Reviewed Yes Communication able to make needs known Mobility and Gait pt stated that she is independent with all mobilities and ambulation without AD Social History Household Members family Living Arrangements RV Number of Floors (Floors) One Floor Number of Stairs To Enter/Railing? 5 steps B rails to enter the RV Home Environment Standard Height Toilet,Walk in Shower Home Equipment Hand Held Shower Additional Social History Comment pt lives in [place], [place] and has been driving with her cousins in an RV ; stated that they plan to cut their trip short and drive back to [place]. M2 PT-IP Current Condition Start: 03/01/21 10:24 Freq: NEEDED Status: Active Protocol: Document 03/01/21 09:41 AB (Rec: 03/01/21 10:36 AB [id number]) Physical Therapy Current Condition Current Condition Evaluation Date 03/01/21 Treatment Diagnosis TIA; difficulty in walking Onset Date 02/28/21 M3 PT-IP Subjective Start: 03/01/21 10:24 Freq: NEEDED Status: Active Protocol: Document 03/01/21 09:41 AB (Rec: 03/01/21 10:36 AB [email or web address]) Subjective Physical Therapy Visit Type Type Initial Evaluation Visit Start Time 09:41 Visit Stop Time 09:55 Total Visit Minutes 14 Number of SHEET TURNER Visits 0 Physical Therapy Visit Comments Patient Comments agreeable to do PT M4 PT-IP Mobility and Gait Start: 03/01/21 10:24 Freq: NEEDED Status: Active Protocol: Document 03/01/21 09:41 AB (Rec: 03/01/21 10:36 AB [id number]) PT-Bed Mobility Assessment Supine to Sit Supine to Sit Independent Sit to Supine Sit to Supine Independent PT-Transfer Assessment Sit to and From Stand Sit to and from Stand Independent Equipment Transfer Assistive Device None Orthotic/Prosthetic Devices or Brace: No Comments Mobility Comments completed supine to sit independent. completed sit to stand independent. ambulated ~ 150 ft without AD SBA for safety. No LOB but can be impulsive. completed stair climbing: ascending without AD SBA but holds on to one rail for descending stairs SBA. pt completed x 2 sets. pt ambulated back to her room. standing balance assessment: static standing G, narrow FILI steady, narrow FILI with eyes closed: F+, with perturbations : F+, single leg stance: RLE: 13 sec LLE: 5 sec. requested to go back to bed. sit to supine independent. call light and table placed within reach. Gait Assessment Gait Gait Assistance Required: Standby Assistance Distance (Feet) 150 Able to Maintain Weight Bearing Status Yes During Gait Assistive Devices Assistive Device None Orthotic/Prosthetic Devices or Brace: No Gait Deviations General Gait Pattern Narrow Based Gait Stair Climbing Assessment Evaluation Level of Assist On Stairs Standby Assistance Devices Stair Climbing Assistive Devices None,Left Railing,Right Railing Technique/Endurance Stair Climbing Direction Ascend and Descend Stair Climbing Technique Step Over Step Number of Steps Climbed 3 Query Text: Stair Climbing Set # Repetitions (reps) 2 PT-Balance Assessment Sitting Balance and Reactions Static Sitting Balance Ability Normal Dynamic Sitting Balance Ability Normal Standing Balance and Reactions Static Standing Balance Ability Good Dynamic Standing Balance Ability Good Device Used without AD Balance Tests Single Limb Standing RLE: 13 sec LLE: 5 sec Comments Other Balance Tests/Deviations/Treatment pls refer to mobility section : M5 PT-IP Objective Assessments Start: 03/01/21 10:24 Freq: NEEDED Status: Active Protocol: Document 03/01/21 09:41 AB (Rec: 03/01/21 10:36 [id number]) Orientation Orientation/Cognition Level of Alertness Alert Orientation Name,Place,Situation Language Function Ability No Deficits Noted Safety Awareness Understands Safety Issues Memory Description No Deficits Noted Gross Range of Motion Lower Extremity ROM Assessment Within Functional Limits Strength Lower Extremity Strength Assessment Within Functional Limits Coordination Assessment Gross Coordination Gross Coordination WNL Sensation Assessment Sensation Gross Sensation WNL Muscle Tone Muscle Tone WNL Yes M6 PT-IP Treatment Start: 03/01/21 10:24 Freq: NEEDED Status: Active Protocol: Document 03/01/21 09:41 AB (Rec: 03/01/21 10:36 AB [id number]) Physical Therapy Treatment Education Education Provided Safety M7 PT-IP Assessment and Plan Start: 03/01/21 10:24 Freq: NEEDED Status: Active Protocol: Document 03/01/21 09:41 AB (Rec: 03/01/21 10:36 AB [id number]) PT Summary Assessment and Plan Potential Rehabilitation Potential Good Status of Condition at Evaluation Stable Summary Assessment Summary PT eval completed. pt is independent with bed mobility, SBA for transfers and ambulation without AD for safety. pt without LOB during ambulation. No further PT intervention indicated at this time. Frequency of Treatment Frequency Of Treatment Discharge Recommendations To Nursing Amount of Assist Needed Standby Assistance Discharge Recommendations PT Discharge Recommendations Home Transportation Needs at Discharge Private Vehicle
--- NOTE | 2021-03-01 09:46 | OT.IP.EVAL ---
Past Medical History (Last Updated 02/28/21 @ 22:01 by Camille Ashley MD) Allergic rhinitis Hyperlipidemia Hypertension Hypothyroidism Occupational Therapy Inpatient Evaluation/Re-Eval M1 PT/OT-IP Prior Functional Status Start: 03/01/21 09:31 Freq: NEEDED Status: Active Protocol: Document 03/01/21 09:31 [facility] (Rec: 03/01/21 09:45 [facility] [id number]) Medical Review Prior Functional Status Medical History Reviewed Yes Communication Independent Mobility and Gait Independent and did not use any devices for ambulation. Activities of Daily Living and IADL's Completely independent for all ADl, IADL, does her own meds, pays the bills, and drives. Prior Functional Level (Other details) Pt has been traveling in a RV from [place], [place] with her two cousins. Social History Household Members family Living Arrangements RV Number of Stairs To Enter/Railing? 5 steps with narrow bilateral rail to get into the RV. Home Environment Standard Height Toilet,Walk in Shower Additional Social History Comment Pt has wc, FWW -that her used from a prior sx at home. M2 OT-IP Current Condition Start: 03/01/21 09:31 Freq: Status: Active Protocol: Document 03/01/21 09: [facility] (Rec: 03/01/21 09:45 [facility] [id number]) Occupational Therapy Current Condition Current Condition Evaluation Date 03/01/21 Treatment Diagnosis TIA Diagnosis Onset Date 02/28/21 M3 OT- IP Subjective and Pain Start: 03/01/21 09:31 Freq: Status: Active Protocol: Document 03/01/21: [facility] (Rec: 03/01/21 09:45 [facility] [id number]) OT- Subjective Occupational Therapy Visit Type Type Initial Evaluation Visit Start Time 09:00 Visit Stop Time 09:30 Total Visit Minutes 30 Occupational Therapy Visit Comments Patient Comments Pt agreed to get up and work with OT. Patient/Caregiver Goals TO go home. OT Pain Assessment Pain When Pain Assessed At Rest Pain Present Pain Present Pain Reported M4 OT- IP ADL's Start: 03/01/21 09:31 Freq: Status: Active Protocol: Document 03/01/21 09:31 [facility] (Rec: 03/01/21 09:45 [facility] [id number]) OT [id number] General Evaluation Self-Feeding Ability Independent OT ADL-Grooming General Evaluation Grooming Ability Independent OT ADL-Oral Care General Eval Oral Care Ability Independent OT ADL-Dressing General Eval Lower Body Dressing Ability Independent OT ADL-Toileting General Evaluation Toileting Ability Independent OT ADL-Bathing Comments OT Bathing Comments Pt states will just shower later in the RV. M5 OT- IP IADL's Start: 03/01/21 09:31 Freq: Status: Active Protocol: Document 03/01/21 09:31 [facility] (Rec: 03/01/21 09:45 [facility] [id number]) OT-Instrumental Activities of Daily Living Deficits IADL Deficits Identified No Deficits Home Safety Awareness Awareness of Need for Assistance at Home Good Awareness Ability to Problem Solve Emergency Able to Problem Solve Situations Medication Management Medication Management No Deficits Identified Meal Preparation Meal Preparation No Deficits Identified Research Biologist Research Biologist No Deficits Identified M6 OT- IP Functional Cognition Start: 03/01/21 09:31 Freq: Status: Active Protocol: Document 03/01/21 09: [facility] (Rec: 03/01/21 09:45 [facility] [id number]) Cognitive Factors Limiting Selfcare Function Cognitive Ability Level of Alertness Alert Patient Orientation Name,Age,Birthday,Month,Date, Year,Day of Week,Place, Situation Attention Span Ability Capable of Focused Attention, Capable of Sustained Attention Ability to Follow Commands Able to Follow Multi-Step Commands Memory Description No Deficits Noted Safety Awareness No Deficits Noted Problem Solving Ability No deficits Noted Executive Function Ability No Deficits Noted Cognitive Comments Cognitive Assessment Comments Pt scored 70 seconds for [place] Making Part B which implies normal for visual attention, task switching, speed of processing, mental flexibility , and executive functioning. Pt score is above 90% for her age. OT- Vision and Hearing OT- Hearing Assessment OT- Hearing Assessment WFL OT- Vision Assessment Visual Acuity Glasses For Reading Visual Attentiveness WFL Occular Pursuits WFL Visual Convergence WFL Visual Singer WFL Diplopia Absent M7 OT- IP Mobility and Balance Start: 03/01/21 09:31 Freq: Status: Active Protocol: Document 03/01/21 09:31 [facility] (Rec: 03/01/21 09:45 [facility] [id number]) OT- Bed Mobility Assessment Rolling Level of Assistance Independent Supine to Sit Supine to Sit Assist Independent Sit to Supine Sit to Supine Assist Independent Scooting Scooting to Edge of Bed Independent Scooting Up and Down in Bed Independent OT-Transfer Assessment Sit to and From Stand Sit to and from Stand Independent Transfers Transfer Ability Independent Technique Transfer Destination Bed,Toilet Transfer Technique Stand Step Pivot Devices Transfer Assistive Devices None Comments Mobility Comments Pt completely independent to mobilize in the room with good safety. OT- Gait Assessment Gait Gait Assistance Required: Independent OT- Balance Assessment Sitting Balance and Reactions Static Sitting Balance Ability Normal Dynamic Sitting Balance Ability Normal Standing Balance and Reactions Static Standing Balance Ability Normal Dynamic Standing Balance Ability Good M8 OT- IP Objective Assessments Start: 03/01/21: Freq: Status: Active Protocol: Document 03/01/21: [facility] (Rec: 03/01/21 09:45 [facility] [id number]) OT Gross Range of Motion Upper Extremity Range of Motion Assessment Within Functional Limits OT Strength Upper Extremity Strength Assessment Within Functional Limits OT- Coordination Assessment Upper Extremity Finger to Nose Test Within Functional Limits Finger Tapping Test Within Functional Limits Comments Coordination Comments 9 Hole Peg Test RUE 23 seconds which scores closer to 75%, LUE 25 seconds which puts her at 75%. OT-Muscle Tone Assessment Muscle Tone WNL Yes OT Sensation Assessment Comments Summary Comments Intact for light touch. M9 OT- IP Assessment and Plan Start: 03/01/21 09:31 Freq: Status: Active Protocol: Document 03/01/21:31 [facility] (Rec: 03/01/21 09:45 [facility] [id number]) OT Summary Assessment and Plan Potential Rehabilitation Potential Excellent Analytic Complexity at Evaluation Low Summary Progress Towards Goals Safe For Discharge Assessment Summary Pt low complexity and had TIA per pt feels she is back to baseline. Pt is independent in the room for ADL's and mobility needs. Pt is intact for cognitive needs. Therefore discharge pt for OT services. Pt to go home with her cousins when medically stable. Discharge Recommendations OT Discharge Recommendations Home with Assistance Transportation Needs at Discharge Private Vehicle
--- NOTE | 2021-03-01 10:53 | CM.DANOTE ---
DCP: Case received, EMR reviewed and met with patient. Introduced self and role. Was able to obtain information regarding her baseline activity status prior to hospitalization. DCP assessment completed with information currently available. Patient is an 81 year old female who admitted yesterday evening to the care of the hospitalist team. PCP: Dr. Igor Wolfe (in [place]). Payer: confirmed: [employer] Out of [facility]. Patient came to the hospital via ambulance secondary to CVA symptoms. Patient had experienced some weakness, passed out. Patient had difficulty lifting her left arm. She is here for TIA, rule out CVA. She is having an MRI today. Met with patient. She is alert and oriented. She resides in [place], [place], with her spouse, Vincent. She is traveling in an RV with some of her friends. Her friends became worried about her symptoms, and called ambulance. Patient is independent at her baseline. She will be working with P.T. today. She indicated, she is currently having no symptoms. P: DCP to continue to follow. Patient should be able to discharge back to , possibly today, depending on results of her tests. She will also be working with P.T. Monika White RN/Band [employer]
[2021-03-01 12:44] VITALS: BP 165/80; PULSE 63; RESP 16; TEMP 36.6
--- NOTE | 2021-03-01 13:39 | PC.NURSE ---
Pt is dressed and ready for discharge home with family member. IV removed, Tele removed. Went over d/c instructions with Pt-discussed d/c meds, time of last dose, reviewed stroke education, info on TIA, recommendations for follow up with her PCP Dr. Wolfe in [place] within 1 week and how to obtain her medical records and have them sent to her PCP. 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
--- NOTE | 2021-03-01 14:42 | P.DS_ITS ---
History of Present Illness History of Present Illness Chief complaint: stroke Narrative: The patient is an 81-year-old female with a history of hypertension, hyperlipidemia, hypothyroidism who is traveling from [facility] in an RV with a group of friends.? The patient was sitting at the table this evening when she felt ?funny and not right?.? Patient states she ?passed out.? She states that when the medics arrived she was unable to lift her left arm.? She felt she was unable to speak.? Her friends noted some drooling out of the left side of her face.? The patient states that by the time she was in the truck with the medics she was able to move her left arm.? She had no numbness or tingling.? No headache.? No blurred vision or double vision.? Patient had complete control of her arms and legs.? She had no incontinence.? No headache.? Her speech was clear.? The patient was evaluated in the emergency department.? She was found to have an NIH stroke scale score of 0.? Head CT was obtained which was negative for any acute bleed or evidence of an acute stroke.? She had a CT of her neck which showed no intracranial and carotid abnormalities.? She was found to have cervical spine abnormalities which is chronic.? The patient had a 12 lead EKG which showed some lateral ST T wave changes but no acute ST-T changes.? Her initial troponin was less than 0.012.? Patient is back to her baseline.? She is admitted to the hospital for evaluation of a possible TIA.? In the emergency room the patient was noted to be markedly hypertensive.? Her blood pressure was 179/78.? Blood pressure has since improved to 150/85 systolic. Discharge Providers Provider Date of admission: 02/28/21 20:50 Discharge Date: 03/01/21 Consults: 02/28/21 21:44 Consult to Occupational Therapy Evaluate & Treat Comment: Physician Instructions: Evaluate and treat Consult to Physical Therapy Evaluate & Treat Comment: Physician Instructions: Evaluate and Treat Discharge provider: Alon Lai MD Summary Hospital Course Discharge Diagnosis: 1. Acute transient ischemic attack 2. Small vessel disease on brain MRI 3. Chronic hypertension 4. Hyperlipidemia 5. Hypokalemia Patient admitted with stroke symptoms as noted in HPI which resolved by the time she got to the ED. Head/neck CTA no hemodynamically significant occlusion. Brain MRI showed diffuse small-vessel disease, no evidence of acute CVA. Transthoracic echo showed normal LVEF, mild MR and TR. Patient has not had any recurrence of neurological symptoms. Telemetry has been normal. Blood pressures have been moderately elevated in setting of acute CVA. Patient states she has had mildly elevated blood pressures in the 140s or higher at baseline. She will discuss with PCP adjustment in blood pressure lowering medication. She is on metoprolol succinate 50 mg q.d. with heart rate around 60 at rest on telem etry. She is also on valsartan HCT 160-12.5 mg q.d. which can be increased. She did have slightly low potassium of 3.2 on admission and received oral potassium replacement. Patient was started on aspirin anti-platelet therapy which she will continue on discharge. Her cholesterol appears well controlled with LDL 50 on moderate dose statin therapy. Status at Discharge Overall status at discharge: patient is back to baseline Exam Vital Signs (past 8 hours): - 03/01/21 07:38 03/01/21 09:26 03/01/21 12:44 Temperature 98.3 F 97.8 F Pulse Rate 74 63 Respiratory Rate 18 16 Blood Pressure 145/75 H 145/75 H 165/80 H Pulse Oximetry 99 Oxygen Delivery Method Room Air Oxygen Flow Rate 0 Narrative Exam Narrative: General: Alert, NAD Neurological: Affect normal, speech normal, fully oriented, no weakness of face, upper or lower extremities Objective Labs Result Diagrams: 02/28/21 17:18 03/01/21 06:25 Labs: Laboratory Results - last 24 hr 02/28/21 02/28/21 02/28/21 17:18 17:18 17:18 WBC 11.4 H RBC 4.08 Hgb 13.2 Hct 38.8 MCV 95.2 MCH 32.3 MCHC 34.0 RDW 12.5 Plt Count 310 Neut % (Auto) 56.0 Lymph % (Auto) 31.9 [place] % (Auto) 9.7 Eos % (Auto) 1.3 L Baso % (Auto) 1.1 Neut # (Auto) 6400 Lymph # (Auto) 3600 [place] # (Auto) 1100 H Eos # (Auto) 200 Baso # (Auto) 100 PT 11.0 INR 1.0 APTT 27 Sodium Potassium Chloride Carbon Dioxide BUN Creatinine Estimated GFR BUN/Creatinine Ratio Glucose Calcium Total Creatine Kinase 58 CK-MB (CK-2) TNP CK-MB (CK-2) Rel Index TNP Troponin I < 0.012 Triglycerides Cholesterol LDL Cholesterol, Calc HDL Cholesterol Urine Color Urine Appearance Urine pH Ur Specific [place] Urine Protein Urine Glucose (UA) Urine Ketones Urine Occult Blood Urine Nitrate Urine Bilirubin Urine Urobilinogen Ur Leukocyte Esterase Urine RBC Urine WBC Ur Squamous Epith Cells Urine Bacteria Ur Culture Indicated? U Opiates 300ng/mL cut Ur Oxycodone Screen Urine Methadone Screen Ur Barbiturates Screen U Tricyclic Antidepress Ur Phencyclidine Scrn Ur Amphetamines Screen U Methamphetamines Scrn Ur MDMA Scrn (Ecstasy) U Benzodiazepines Scrn Urine Cocaine Screen U Marijuana (THC) Screen SARS-CoV-2 (PCR) 02/28/21 02/28/21 02/28/21 17:18 17:18 17:26 WBC RBC Hgb Hct MCV MCH MCHC RDW Plt Count Neut % (Auto) Lymph % (Auto) [place] % (Auto) Eos % (Auto) Baso % (Auto) Neut # (Auto) Lymph # (Auto) [place] # (Auto) Eos # (Auto) Baso # (Auto) PT INR APTT Sodium 132 L Potassium 3.1 L Chloride 98 Carbon Dioxide 25 BUN 8 Creatinine 0.78 Estimated GFR > 60.0 BUN/Creatinine Ratio 10.3 Glucose 117 H Calcium 8.9 Total Creatine Kinase CK-MB (CK-2) CK-MB (CK-2) Rel Index Troponin I Triglycerides 88 Cholesterol 137 L LDL Cholesterol, Calc 51 HDL Cholesterol 68 H Urine Color Urine Appearance Urine pH Ur Specific [place] Urine Protein Urine Glucose (UA) Urine Ketones Urine Occult Blood Urine Nitrate Urine Bilirubin Urine Urobilinogen Ur Leukocyte Esterase Urine RBC Urine WBC Ur Squamous Epith Cells Urine Bacteria Ur Culture Indicated? U Opiates 300ng/mL cut Ur Oxycodone Screen Urine Methadone Screen Ur Barbiturates Screen U Tricyclic Antidepress Ur Phencyclidine Scrn Ur Amphetamines Screen U Methamphetamines Scrn Ur MDMA Scrn (Ecstasy) U Benzodiazepines Scrn Urine Cocaine Screen U Marijuana (THC) Screen SARS-CoV-2 (PCR) Negative 03/01/21 03/01/21 03/01/21 03:30 03:30 06:25 WBC RBC Hgb Hct MCV MCH MCHC RDW Plt Count Neut % (Auto) Lymph % (Auto) [place] % (Auto) Eos % (Auto) Baso % (Auto) Neut # (Auto) Lymph # (Auto) [place] # (Auto) Eos # (Auto) Baso # (Auto) PT INR APTT Sodium Potassium Chloride Carbon Dioxide BUN Creatinine Estimated GFR BUN/Creatinine Ratio Glucose Calcium Total Creatine Kinase 74 CK-MB (CK-2) TNP CK-MB (CK-2) Rel Index TNP Troponin I < 0.012 Triglycerides Cholesterol LDL Cholesterol, Calc HDL Cholesterol Urine Color Yellow Urine Appearance Cloudy Urine pH 6.5 Ur Specific [place] <=1.005 Urine Protein Negative Urine Glucose (UA) Negative Urine Ketones Negative Urine Occult Blood 2+ H Urine Nitrate Positive H Urine Bilirubin Negative Urine Urobilinogen 0.2 Ur Leukocyte Esterase 2+ H Urine RBC 1-5/hpf Urine WBC 30-100/hpf H Ur Squamous Epith Cells 1-5 /hpf Urine Bacteria Many (>30) H Ur Culture Indicated? Specimen cultured U Opiates 300ng/mL cut Negative Ur Oxycodone Screen Negative Urine Methadone Screen Negative Ur Barbiturates Screen Negative U Tricyclic Antidepress Negative Ur Phencyclidine Scrn Negative Ur Amphetamines Screen Negative U Methamphetamines Scrn Negative Ur MDMA Scrn (Ecstasy) Negative U Benzodiazepines Scrn Negative Urine Cocaine Screen Negative U Marijuana (THC) Screen Negative SARS-CoV-2 (PCR) 03/01/21 06:25 WBC RBC Hgb Hct MCV MCH MCHC RDW Plt Count Neut % (Auto) Lymph % (Auto) [place] % (Auto) Eos % (Auto) Baso % (Auto) Neut # (Auto) Lymph # (Auto) [place] # (Auto) Eos # (Auto) Baso # (Auto) PT INR APTT Sodium 132 L Potassium 4.3 D Chloride 101 Carbon Dioxide 29 BUN 7 Creatinine 0.58 Estimated GFR > 60.0 BUN/Creatinine Ratio 12.1 Glucose 100 Calcium 8.7 Total Creatine Kinase CK-MB (CK-2) CK-MB (CK-2) Rel Index Troponin I Triglycerides Cholesterol LDL Cholesterol, Calc HDL Cholesterol Urine Color Urine Appearance Urine pH Ur Specific [place] Urine Protein Urine Glucose (UA) Urine Ketones Urine Occult Blood Urine Nitrate Urine Bilirubin Urine Urobilinogen Ur Leukocyte Esterase Urine RBC Urine WBC Ur Squamous Epith Cells Urine Bacteria Ur Culture Indicated? U Opiates 300ng/mL cut Ur Oxycodone Screen Urine Methadone Screen Ur Barbiturates Screen U Tricyclic Antidepress Ur Phencyclidine Scrn Ur Amphetamines Screen U Methamphetamines Scrn Ur MDMA Scrn (Ecstasy) U Benzodiazepines Scrn Urine Cocaine Screen U Marijuana (THC) Screen SARS-CoV-2 (PCR) PFSH Medical History (Updated 02/28/21 @ 22:01 by Camille Ashley MD) Allergic rhinitis Hyperlipidemia Hypertension Hypothyroidism Family History (Updated 02/28/21 @ 22:01 by Camille Ashley MD) Mother Hypertension Social History household members: family Smoking Status: Never smoker alcohol intake: never Discharge Plan Discharge Plan Patient Disposition: Home Provider Discharge Comment: You were admitted due to TIA (transient ischemic attack). MRI showed small vessel disease. Head/neck CTA did not show significant plaque in the major neck or brain blood vessels. Echocardiogram was done and showed mild leakage of mitral and tricuspids valves which is not concerning and common for age. Your potassium was slightly low in blood work which was treated. See your provider next week. Discuss adjustment in your blood pressure medications to improve long-term BP control. Discharge orders & Medications Prescriptions: New aspirin 81 mg Tablet,Delayed Release (Dr/Ec) 81 mg PO DAILY Qty: 30 RF: 0 Continued atorvastatin 20 mg Tablet 20 mg PO QPM RF: 0 metoprolol succinate 50 mg Tablet Extended Release 24 Hr 50 mg PO DAILY RF: 0 valsartan-hydrochlorothiazide 160-12.5 mg Tablet 1 tab PO DAILY RF: 0 levothyroxine 88 mcg Tablet 88 mcg PO DAILY RF: 0 Follow up/Referrals: Jeff Wolfe [Other] - 1 Week Diet/Activity/Treatments Diet: Regular Visit Report/Discharge Packet Instructions: DI for Transient Ischemic Attack Discharge Data Attending Provider: Camille Ashley Quality VTE Deep Vein Thrombosis/Pulmonary Embolism Present on Admission: No
== END 2021-03-01 13:43 | disposition home or self-care (01) ==
LOC: ED 19:34 → AC 20:51
PROVIDERS: Admitting Provider Internal Medicine; Emergency Provider Emergency Medicine; Referring Provider Emergency Medicine; Visit Provider Internal Medicine
DX: G45.9 Transient cerebral ischemic attack, unspecified (principal); I67.89 Other cerebrovascular disease; I10 Essential (primary) hypertension; E03.9 Hypothyroidism, unspecified; E78.5 Hyperlipidemia, unspecified; E87.6 Hypokalemia; Z20.822 Contact with and (suspected) exposure to COVID-19
CPT/HCPCS: 36415; 70450; 70496; 70498; 70551; 80048; 80061; 80305; 81001; 81003; 82550; 82962; 84484; 85025; 85610; 85730; 87077; 87086; 87186; 87635; 93005; 93010; 93306; 96360; 96361; 97161; 97165; 99285; C9803; G0378; J1650